=== PATIENT | female | born 1960 | race Caucasian/White ===

== ENCOUNTER 2017-04-18 09:25 | Emergency (ER) | payer BC, OTHER ==
[2017-04-18 10:20] VITALS: BP 143/73
--- NOTE | 2017-04-18 12:27 | EDM.PDOC ---
Scribed by Rima Priest 04/18/17 1224 for Yobany Salas MD ED HPI GENERAL MEDICAL PROBLEM - General Chief Complaint: ENT Problem Stated Complaint: [id number] CANT HEAR Time Seen by Provider: 04/18/17 10:25 Source of Information: Reports: Patient, RN, RN Notes Reviewed History Limitations: Reports: No Limitations - History of Present Illness INITIAL COMMENTS - FREE TEXT/NARRATIVE: Complained of bilateral ears feel plugged and muffled x4 days with mild sinus pressure and headache. Denies fever, chills, nasal drainage or sore throat. Location: Reports: Head Quality: Reports: Ache Severity: Moderate Improves with: Reports: None Worsens with: Reports: None Associated Symptoms: Reports: No Other Symptoms - Related Data Allergies Allergy/AdvReac Type Severity Reaction Status Date / Time No Known Allergies Allergy Verified 01/11/14 15:05 Home Meds: Home Meds . [No Known Home Meds] 01/11/14 [History] Social & Family History - Family History Family Medical History: Noncontributory - Alcohol Use Days Per Week of Alcohol Use: 1 Number of Drinks Per Day: 1 Total Drinks Per Week: 1 - Recreational Drug Use Recreational Drug Use: No Drug Use in Last 12 Months: No ED ROS ENT - Review of Systems Review Of Systems: ROS reveals no pertinent complaints other than HPI. ED EXAM, ENT - Physical Exam Exam: See Below Exam Limited By: No Limitations General Appearance: Alert, WD/WN, No Apparent Distress Eye Exam: Bilateral Eye: Normal Inspection Ears: Other (bilateral TMS retracted. Right TM with clear air fluid level. ) Nose: Other (<ild nasal mucosa and inferior turbinates, swelling with drainage or erythema. ) Mouth/Throat: Normal Oropharynx Head: Atraumatic, Normocephalic Neck: Normal Inspection, Supple, Non-Tender, Full Range of Motion Respiratory/Chest: No Respiratory Distress, Lungs Clear, Normal Breath Sounds, No Accessory Muscle Use, Chest Non-Tender Cardiovascular: Normal Peripheral Pulses, Regular Rate, Rhythm, No Edema, No Gallop, No JVD, No Murmur, No Rub Neurological: Alert, Oriented, CN II-XII Intact, Normal Cognition, Normal Gait, Normal Reflexes, No Motor/Sensory Deficits Psychiatric: Normal Affect, Normal Mood Skin: Warm, Dry, Intact, Normal Color, No Rash Lymphatic: No Adenopathy Course - Vital Signs Last Recorded V/S: Last Vital Signs Temp 36.3 C 04/18/17 10:15 Pulse 66 04/18/17 10:15 Resp 18 04/18/17 10:15 BP 143/73 H 04/18/17 10:15 Pulse Ox 100 04/18/17 10:15 Departure - Departure Time of Disposition: 11:07 Disposition: Home, Self-Care 01 Condition: Good Clinical Impression: Eustachian tube dysfunction Qualifiers: Laterality: bilateral Qualified Code(s): H69.83 - Other specified disorders of Eustachian tube, bilateral Barotitis media Qualifiers: Encounter type: initial encounter Qualified Code(s): T70.0XXA - Otitic barotrauma, initial encounter - Discharge Information Instructions: Barotitis Media Referrals: Yadi Rodriguez [Primary Care Provider] - Forms: ED Department Discharge Additional Instructions: RX: Prednisone 60mg. RX: Loratidine D. Follow up in clinic Thursday or Thursday for recheck, Pinch and blow nose gently and frequently. I have read and agree with the documentation that has been completed regarding this visit. By signing this record, I attest that the documentation was completed in my physical presence and is an accurate record of the encounter.
== END 2017-04-18 11:19 | disposition home or self-care (01) ==
LOC: DL.ED 09:25
DX: T70.0XXA Otitic barotrauma, initial encounter (principal); H69.83 Other specified disorders of Eustachian tube, bilateral
CPT/HCPCS: 99282